=== PATIENT | male | born 1970 | race Caucasian/White ===

== ENCOUNTER 2017-03-11 13:05 | Emergency (ER) | payer OTHER, MEDICAID ==
[~2017-03-11] VITALS: Ht 167.6 cm; Wt 55.0 kg
[2017-03-11 13:07] VITALS: BP 158/80; PULSE 84; RESP 14; TEMP 98.4; O2SAT 99
[2017-03-11] MEDS ORDERED: MAPA500T13 PO (13:34)
[2017-03-11] MEDS ORDERED: PRED20 PO (13:34)
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
[2017-03-11] MEDS ORDERED: predniSONE 20 MG TAB PO ONE (13:45)
== END 2017-03-11 14:10 | disposition home or self-care (01) ==
LOC: NEPK 13:05
DX: S83.412A Sprain of medial collateral ligament of left knee, initial encounter (principal); X50.9XXA Other and unspecified overexertion or strenuous movements or postures, initial encounter
CPT/HCPCS: 99283; E0113; J7512; L1830

== ENCOUNTER 2017-07-14 16:50 | Emergency (ER) | payer OTHER, MEDICAID ==
[~2017-07-14] VITALS: Ht 167.6 cm; Wt 61.8 kg
[~2017-07-14 16:50] MED LIST: MAPA500T13 PO; PRED20 PO
--- NOTE | 2017-07-14 22:07 | PD ---
Physical Exam Date Seen by Provider: Jul 14, 2017 Time Seen by Provider: 20:27 Narrative 47 year old male presents to the emergency department for evaluation of shooting pain from his back down his bilateral legs. He states the pain is rotating from side to side and has associated numbness. MDM Supervised Visit with JOSE: No Narrative Course 47-year-old male presents to the emergency department for evaluation of back pain that is radiating down his bilateral legs with numbness. Patient initially seen in triage. He left AGAINST MEDICAL ADVICE before he could be placed in a medical bed. Diagnosis Primary Impression: Left against medical advice Disposition: 07 AGAINST MEDICAL ADVICE Shanika Pfeiffer Jul 14, 2017 22:07
== END 2017-07-14 20:27 | disposition left against medical advice (07) ==
LOC: NED 16:50
DX: M54.40 Lumbago with sciatica, unspecified side (principal); Z53.21 Procedure and treatment not carried out due to patient leaving prior to being seen by health care provider
CPT/HCPCS: 99281